=== PATIENT | female | born 1955 | race Caucasian/White ===

== ENCOUNTER 2020-12-04 13:34 | Emergency (ER) | payer OTHER ==
[~2020-12-04 13:34] MED LIST: ALDACTONE25 MG PO; ASPIRIN EC325 MG PO; ATARAX25 MG PO; BACTRIM DS TAB1 EACH PO; BUMEX1 MG PO; HCTZ25 MG PO; LACTINEX1 EACH PO; LANTUS100 UNIT/1 SQ; LEVAQUIN750 MG PO; LIPITOR40 MG PO; NITROSTAT0.4 MG PO; NORVASC5 MG PO; NOVOLOG VI100 UNIT/1 SQ; POTASSIUM20 MEQ/11 PO; REQUIP1 MG PO; REQUIP2 MG PO; SINGULAIR10 MG PO; TOPROL XL 50 MG50 MG PO; ULTRAM50 MG PO; ZESTRIL40 MG PO; ZOFRAN4 MG PO
== END 2020-12-04 16:20 | disposition home or self-care (01) ==
LOC: FER 13:34
DX: R51.9 Headache, unspecified (principal); E11.9 Type 2 diabetes mellitus without complications; I11.0 Hypertensive heart disease with heart failure; I50.9 Heart failure, unspecified; Z88.5 Allergy status to narcotic agent; Z88.8 Allergy status to other drugs, medicaments and biological substances; Z88.1 Allergy status to other antibiotic agents; Z79.4 Long term (current) use of insulin; Z79.899 Other long term (current) drug therapy
CPT/HCPCS: 70450

== ENCOUNTER 2021-01-15 14:13 | Emergency (ER) | payer OTHER ==
[2021-01-15 18:04] LABS: BASOPHIL 0.7 % (0-2); EOSINOPHIL 2.4 % (0-7); HCT 41.7 % (37.0-47.0); HGB 13.8 g/dl (12.5-16.0); LYMPHOCYTE 38.1 % (15-48); MCH 30.3 pg (25.0-31.0); MCHC 33.1 g/dL (32.0-36.0); MCV 91.4 fL (78.0-100.0); MONOCYTE 7.5 % (0-12); MPV 9.6 fL (6.0-9.5); NEUTROPHIL 50.8 % (41-80); NRBC 0; PLT 175 K/uL (150-400); RBC 4.56 M/uL (4.20-5.40); RDW 12.6 % (11.5-14.0); WBC 7.4 K/uL (4.0-10.5)
[2021-01-15 18:22] LABS: ALBUMIN 3.3 g/dL (3.4-5.0); BILIRUBIN - TOTAL 0.6 mg/dL (0.2-1.0); BUN/CREAT RATIO (CALC) 15.8 RATIO; CREATININE 1.01 mg/dL (0.51-0.95); GLOBULIN (CALCULATION) 3.5 g/dL; POTASSIUM 3.6 mmol/L (3.5-5.1); TOTAL PROTEIN 6.8 g/dL (6.4-8.2)
[2021-01-15 18:26] LABS: INR 1.02 (0.9-1.2); PROTHROMBIN TIME 12.8 SECONDS (11.8-13.4)
[2021-01-15] MEDS ORDERED: ULTRAM50 MG PO (21:08)
[2021-03-10] MEDS ORDERED: ALPHA LIPOIC A600 MG PO (16:51)
== END 2021-01-15 21:48 | disposition home or self-care (01) ==
LOC: FER 14:13
PROVIDERS: Physician Assistant
DX: M54.5 Low back pain (principal); M25.552 Pain in left hip; M79.605 Pain in left leg; I13.0 Hypertensive heart and chronic kidney disease with heart failure and stage 1 through stage 4 chronic kidney disease, or unspecified chronic kidney disease; E11.22 Type 2 diabetes mellitus with diabetic chronic kidney disease; N18.30 Chronic kidney disease, stage 3 unspecified; I50.9 Heart failure, unspecified; E11.42 Type 2 diabetes mellitus with diabetic polyneuropathy; I25.10 Atherosclerotic heart disease of native coronary artery without angina pectoris
CPT/HCPCS: 36415; 72100; 73502; 80053; 85025; 85610; 93971; J1885; J2270; J2405